=== PATIENT | female | born 1965 | race Caucasian/White ===

== ENCOUNTER 2019-04-28 12:29 | Inpatient (IN) | payer OTHER ==
[~2019-04-28] VITALS: Ht 162.6 cm; Wt 56.2 kg
[2019-04-28 15:41] VITALS: BP 128/62
[2019-04-28] MEDS ORDERED: ACET-2154 PO (15:52)
[2019-04-28] MEDS ORDERED: BISA10SU61 RC (15:54)
[2019-04-28] MEDS ORDERED: DOCU-141 PO (15:55)
[2019-04-28] MEDS ORDERED: LORA-259 PO (15:57)
[2019-04-28] MEDS ORDERED: LOSA50TA39 PO (15:59)
[2019-04-28] MEDS ORDERED: METH-406 PO ×2 (16:01)
[2019-04-28] MEDS ORDERED: OXYC-128 PO ×2 (16:05→16:07)
[2019-04-28] MEDS ORDERED: OXYCODONE/APAP 5-325 MG TABLET PO PRN ×2 (16:15)
[2019-04-28] MEDS ORDERED: HYDROMORPHONE HCL 2 MG TABLET PO PRN (18:30)
[2019-04-28] MEDS ORDERED: BISACODYL 10 MG SUPP.RECT RC PRN (20:00)
[2019-04-28] MEDS ORDERED: DOCUSATE SODIUM 100 MG CAPSULE PO PRN (20:00)
[2019-04-28] MEDS ORDERED: LORAZEPAM 1 MG TABLET PO PRN (20:00)
[2019-04-28] MEDS ORDERED: ACETAMINOPHEN 325 MG TABLET PO PRN (20:00)
[2019-04-28 20:35] VITALS: BP 125/80
[2019-04-28] MEDS: LOSARTAN POTASSIUM 50 MG TABLET PO SCH (20:49)
[2019-04-28] MEDS: OXYCODONE HCL 10 MG TAB.SR.12H PO SCH (21:00)
[2019-04-29 05:32] VITALS: BP 125/83
[2019-04-29] MEDS: OXYCODONE HCL 10 MG TAB.SR.12H PO SCH ×3 (05:52→22:23)
[2019-04-29 07:13] LABS: BASOPHILS % (AUTO) 0.7 % (0.0-2.0); EOSINOPHILS # (AUTO) 0.2 K/uL (0.0-0.7); EOSINOPHILS % (AUTO) 3.6 % (0.0-7.0); HEMATOCRIT 25.8 % (31.2-41.9); HEMOGLOBIN 8.7 g/dL (10.9-14.3); LYMPHOCYTES # (AUTO) 1.4 K/uL (20.0-40.0); LYMPHOCYTES % (AUTO) 22.9 % (20.5-51.5); MEAN CORPUSCULAR HEMOGLOBIN 31.7 uug (24.7-32.8); MEAN CORPUSCULAR HGB CONC 34 g/dL (32.3-35.6); MEAN CORPUSCULAR VOLUME 93.7 fL (75.5-95.3); MONOCYTES # (AUTO) 0.5 K/uL (2.0-10.0); MONOCYTES % (AUTO) 7.9 % (0.0-11.0); NEUTROPHILS # (AUTO) 3.9 K/uL (1.8-8.9); NEUTROPHILS % (AUTO) 64.9 % (38.5-71.5); PLATELET COUNT (AUTO) 239 K/uL (179-408); RED BLOOD CELL COUNT(AUTO) 2.76 MIL/uL (3.63-4.92)
[2019-04-29 07:29] LABS: BILIRUBIN,TOTAL 0.5 mg/dL (0.2-1.0); CREATININE 0.6 mg/dL (0.6-1.3); MAGNESIUM 1.8 mg/dL (1.8-2.4); PHOSPHOROUS 2.7 mg/dL (2.5-4.9); POTASSIUM 3.4 mmol/L (3.5-5.1)
[2019-04-29 07:35] LABS: THYROID STIMULATING HORMONE 2.83 mIU/mL (0.358-3.740)
[2019-04-29 08:18] VITALS: BP 122/75
[2019-04-29] MEDS: SENNOSIDES/DOCUSATE SODIUM TABLET PO SCH (08:38)
[2019-04-29] MEDS: LOSARTAN POTASSIUM 50 MG TABLET PO SCH ×2 (08:39→20:46)
[2019-04-29] MEDS ORDERED: MIRALAX 17 GM POWD.PACK PO PRN (10:15)
[2019-04-29] MEDS ORDERED: POTASSIUM CHLORIDE 20 MEQ TAB.PRT.SR PO ONE (12:15)
[2019-04-29 18:04] VITALS: BP 139/88
[2019-04-29 19:52] VITALS: BP 146/85
[2019-04-29] MEDS: FERROUS SULFATE 325 MG TABEC PO SCH (20:45)
[2019-04-30 04:36] VITALS: BP 138/92
[2019-04-30] MEDS: OXYCODONE HCL 10 MG TAB.SR.12H PO SCH ×3 (06:16→21:08)
[2019-04-30] MEDS: SENNOSIDES/DOCUSATE SODIUM TABLET PO SCH (09:51)
[2019-04-30] MEDS: LOSARTAN POTASSIUM 50 MG TABLET PO SCH ×2 (09:51→21:07)
[2019-04-30] MEDS: FERROUS SULFATE 325 MG TABEC PO SCH ×2 (09:51→21:07)
[2019-04-30 16:00] VITALS: BP 113/77
[2019-04-30 21:08] VITALS: BP 147/99
[2019-05-01 05:55] VITALS: BP 113/71
[2019-05-01] MEDS: OXYCODONE HCL 10 MG TAB.SR.12H PO SCH ×3 (05:56→21:01)
[2019-05-01 07:52] VITALS: BP 112/72
[2019-05-01] MEDS: FERROUS SULFATE 325 MG TABEC PO SCH ×2 (09:20→20:48)
[2019-05-01] MEDS: SENNOSIDES/DOCUSATE SODIUM TABLET PO SCH (09:20)
[2019-05-01] MEDS: LOSARTAN POTASSIUM 50 MG TABLET PO SCH ×2 (09:21→20:44)
[2019-05-01 15:35] VITALS: BP 111/74
[2019-05-01 20:41] VITALS: BP 114/75
[2019-05-02] MEDS: OXYCODONE HCL 10 MG TAB.SR.12H PO SCH ×3 (05:15→21:14)
[2019-05-02] MEDS: MIRALAX 17 GM POWD.PACK PO PRN ×2 (05:16→08:35)
[2019-05-02 05:56] VITALS: BP 112/70
[2019-05-02] MEDS: FERROUS SULFATE 325 MG TABEC PO SCH ×2 (08:27→21:14)
[2019-05-02] MEDS: SENNOSIDES/DOCUSATE SODIUM TABLET PO SCH (08:28)
[2019-05-02] MEDS: LOSARTAN POTASSIUM 50 MG TABLET PO SCH ×2 (08:34→21:00)
[2019-05-02] MEDS ORDERED: SIMETHICONE 80 MG TAB.CHEW PO PRN (11:30)
[2019-05-02 21:09] VITALS: BP 102/65
[2019-05-03] MEDS: OXYCODONE HCL 10 MG TAB.SR.12H PO SCH (05:32)
[2019-05-03 05:35] VITALS: BP 117/78
[2019-05-03 08:05] VITALS: BP 116/69
[2019-05-03] MEDS: FERROUS SULFATE 325 MG TABEC PO SCH (08:21)
[2019-05-03] MEDS: LOSARTAN POTASSIUM 50 MG TABLET PO SCH (08:21)
[2019-05-03] MEDS: SENNOSIDES/DOCUSATE SODIUM TABLET PO SCH (08:22)
[2019-05-03 12:50] VITALS: BP 109/68
== END 2019-05-03 14:00 | disposition home health service (06) | DRG 561 ==
PROVIDERS: ADMIT Internal Medicine; ATTEND Physical Medicine & Rehabilitation Pain Medicine
DX: Z47.89 Encounter for other orthopedic aftercare (principal); M51.16 Intervertebral disc disorders with radiculopathy, lumbar region; M51.17 Intervertebral disc disorders with radiculopathy, lumbosacral region; D50.9 Iron deficiency anemia, unspecified; G89.29 Other chronic pain; I10 Essential (primary) hypertension; E87.6 Hypokalemia; Z91.013 Allergy to seafood; Z91.048 Other nonmedicinal substance allergy status
CPT/HCPCS: 36415; 82652; 83550; 83735; 84100; 84443; 85025